=== PATIENT | female | born 1980 | race African-American/Black ===

== ENCOUNTER 2017-10-12 14:18 | Emergency (ER) | payer MEDICAID ==
[~2017-10-12] VITALS: Ht 172.7 cm; Wt 66.0 kg
[2017-10-12] MEDS ORDERED: ACETAMINOPHEN 325MG TABLET PO STA (15:08)
[2017-10-12 15:11] LABS: CLARITY URINE CLOUDY (CLEAR); COLOR URINE YELLOW (YELLOW); GLUCOSE URINE NEGATIVE (NEGATIVE); KETONES URINE 4+ (NEGATIVE); LEUKOCYTE ESTERASE URINE 1+ (NEGATIVE); NITRITE URINE NEGATIVE (NEGATIVE); OCCULT BLOOD URINE NEGATIVE (NEGATIVE); PROTEIN URINE TRACE (NEGATIVE); SPECIFIC GRAVITY URINE 1.026 (1.005-1.030)
[2017-10-12 16:46] LABS: BASOPHILS % 0.5 % (0.0-2.0); EOSINOPHILS % 0.3 % (0.0-5.0); HEMATOCRIT. 33.6 % (36.0-48.0); HEMOGLOBIN. 11.7 g/dL (12.0-16.0); LYMPHOCYTES % 10.8 % (20.0-50.0); MEAN CORPUSCULAR VOLUME 83.2 fL (81.0-99.0); MEAN PLATELET VOLUME 8.1 fl (7.4-10.4); MONOCYTES % 3.7 % (2.0-8.0); NEUTROPHILS % 84.7 % (40.0-76.0); PLATELET 186 x1000/uL (130-400); RED BLOOD CELL COUNT 4.04 mill/uL (4.2-5.4)
[2017-10-12 16:54] LABS: INR 1.1
[2017-10-12 16:56] LABS: HCG SCREEN POSITIVE
[2017-10-12 17:01] LABS: CARBON DIOXIDE 23 mEq/L (21-32); CHLORIDE 104 mEq/L (98-107)
[2017-10-12 17:15] LABS: B-HCG QUANTITATIVE 26091 mIU/mL (<3)
[2017-10-12] MEDS ORDERED: SODIUM CHLORIDE 0.9% 1,000 ML IV ONE (19:15)
[2017-10-12] MEDS ORDERED: ONDANSETRON HCL 4MG/2ML VIAL IV ONE ×2 (19:15→22:15)
[2017-10-12] MEDS ORDERED: ACETAMINOPHEN 325MG TABLET PO ONE (20:45)
[2017-10-12 22:40] VITALS: BP 115/65
== END 2017-10-12 22:57 | disposition home or self-care (01) ==
LOC: ER 14:53
DX: O23.42 Unspecified infection of urinary tract in pregnancy, second trimester (principal); O21.1 Hyperemesis gravidarum with metabolic disturbance; O26.892 Other specified pregnancy related conditions, second trimester; M54.5 Low back pain; M54.30 Sciatica, unspecified side; Z3A.15 15 weeks gestation of pregnancy
CPT/HCPCS: 36415; 76805; 76817; 80053; 81001; 83690; 84702; 84703; 85025; 85610; 86850; 86900; 86901; 96361; 96374; 96376; 99285; J2405; J7030; Z7610

== ENCOUNTER 2020-02-09 01:09 | Emergency (ER) | payer MEDICAID ==
[~2020-02-09] VITALS: Ht 172.7 cm; Wt 68.0 kg
[2020-02-09 01:43] VITALS: BP 131/78
[2020-02-09] MEDS ORDERED: LIDOCAINE HCL/PF 1% 10 MG/ML 5ML VIAL IJ ONE (02:15)
[2020-02-09] MEDS ORDERED: BACITRACIN ZINC OINT UDPKT TOP ONE (02:15)
== END 2020-02-09 03:16 | disposition home or self-care (01) ==
LOC: ER 01:09
DX: S61.217A Laceration without foreign body of left little finger without damage to nail, initial encounter (principal); W26.8XXA Contact with other sharp object(s), not elsewhere classified, initial encounter; Y93.89 Activity, other specified; Y92.018 Other place in single-family (private) house as the place of occurrence of the external cause
CPT/HCPCS: 12001; 99282; J3490

== ENCOUNTER 2020-02-25 13:52 | Emergency (ER) | payer SELFPAY ==
[~2020-02-25] VITALS: Ht 172.7 cm; Wt 68.5 kg
[2020-02-25 14:07] VITALS: BP 114/67
== END 2020-02-25 16:15 | disposition home or self-care (01) ==
LOC: ER 14:15
DX: Z48.02 Encounter for removal of sutures (principal)
CPT/HCPCS: 99281